=== PATIENT | male | born 1950 | race Caucasian/White ===

== ENCOUNTER 2018-07-13 05:30 | Day surgery (SDC) | payer MEDICARE ==
[~2018-07-13] VITALS: Ht 180.3 cm; Wt 83.5 kg
[~2018-07-13 05:30] MED LIST: ATOR40TA69 PO; ESOM40CA PO; MULT-40 PO
[2018-07-13] MEDS ORDERED: SODIUM CHLORIDE 0.9% 1000ML 1,000 ML IV ONE ×2 (05:51)
[2018-07-13 06:06] VITALS: BP 149/88
[2018-07-13] MEDS ORDERED: ESOM40CA54 PO (06:26)
[2018-07-13] MEDS ORDERED: DULO20 PO (06:26)
[2018-07-13] MEDS ORDERED: LOSA100T58 PO (06:26)
[2018-07-13] MEDS ORDERED: ASPI-555 PO (06:26)
[2018-07-13] MEDS ORDERED: POTA99TA4 PO (06:26)
[2018-07-13] MEDS ORDERED: RANO500T3 PO (06:26)
[2018-07-13] MEDS ORDERED: METO-408 PO (06:26)
[2018-07-13 07:25] VITALS: BP 117/83
[2018-07-13 07:30] VITALS: BP 138/78
[2018-07-13 07:35] VITALS: BP 140/84
[2018-07-13 07:40] VITALS: BP 150/93
== END 2018-07-13 07:54 | disposition home or self-care (01) ==
LOC: DAH 05:30 → ENDO 05:30
PROVIDERS: ATTEND Internal Medicine
DX: Z12.11 Encounter for screening for malignant neoplasm of colon (principal); D12.2 Benign neoplasm of ascending colon; D12.3 Benign neoplasm of transverse colon; D12.4 Benign neoplasm of descending colon; K57.30 Diverticulosis of large intestine without perforation or abscess without bleeding; K64.0 First degree hemorrhoids; I25.2 Old myocardial infarction; I10 Essential (primary) hypertension; B19.20 Unspecified viral hepatitis C without hepatic coma; R12 Heartburn; F32.9 Major depressive disorder, single episode, unspecified; F41.9 Anxiety disorder, unspecified; Z86.010 Personal history of colon polyps; E78.5 Hyperlipidemia, unspecified; Z88.5 Allergy status to narcotic agent; Z88.8 Allergy status to other drugs, medicaments and biological substances; Z79.82 Long term (current) use of aspirin; Z79.899 Other long term (current) drug therapy
CPT/HCPCS: 45380; 45385; 88305; A4606; J7030 ×2

== ENCOUNTER 2018-10-07 09:55 | Inpatient (IN) | payer MEDICARE | END 2018-10-09 13:02 | disposition home or self-care (01) | LOC: EDH 09:55 → EDHIP 11:00 → 4AH 10-08 13:16 → 2BH 13:17 | PROC: 00C43ZZ Extirpation of Matter from Intracranial Subdural Space, Percutaneous Approach (ICD-10-PCS; principal; 2018-10-07 12:00) | DX: S06.5X9A Traumatic subdural hemorrhage with loss of consciousness of unspecified duration, initial encounter (principal); R41.82 Altered mental status, unspecified; W18.2XXA Fall in (into) shower or empty bathtub, initial encounter; Y93.E1 Activity, personal bathing and showering ==

== ENCOUNTER → 2024-08-01 | Outpatient (CLI) | payer OTHER ==
[~2024-08-01] MED LIST changes: +ASPI-556 PO; -ESOM40CA PO; +ESOM40CA66 PO; +LOSA100T59 PO; +METO-408 PO; +POTA99TA4 PO; +RANO500T3 PO
--- NOTE | 2024-08-02 01:07 | HMCSR ---
APPROVED REPORT EXAM: Two-dimensional and M-mode echocardiogram with Doppler and color Doppler. INDICATION ICD: Atherosclerotic heart disease of [place] coronary artery without angina pectoris I25.10 2D Dimensions RVDd3.8 cmLVEF(%)55.2 (>50%)LVED Vol(simp.)112.0 mL IVSd1.2 (0.7-1.1cm)FS(%)29 %LVES Vol(simp.)53.0 mL LVDd5.1 (3.8-5.6cm)LA (2D)3.6 (1.6-4.0cm)LVEF(%, simp.)53 % PWd1.2 (0.7-1.1cm)Ao Root(2D)3.4 (2.0-3.7cm)LA ESV INDEX (BP)35.70 mL/m2 LVDs3.7 (2.5-4.0cm)LVOT diam2.3 (1.8-2.4cm) IVC diam1.3 cm Deformation Strain Apical 4-16.5 % Apical 2-17.6 % Apical 3-18.4 % Global Strain-17.5 % M-Mode Dimensions EPSS0.7 cm LA (MM)4.3 (1.6-4.0cm) Ao Root(MM)2.7 (2.0-3.7cm) Aortic Valve AoV Vmax3.1 m/Trino Peak GR37.4 mmHgLVOT Vmax1.3 m/s AoV VTI0.7 mAo Mean GR23.9 mmHgLVOT VTI0.28 m ARRON (VMAX)1.78 cm2Al P1/2T441 msAVA (VTI) 1.7 cm2 Mitral Valve MV E Vmax71.5 cm/sDECEL Qudb781 ms MV A Uixd675.1 cm/sP 1/2 T56 ms E/A ratio0.7MVA (PHT)4.0 cm2 TDI E/E' Jysbpp96.8E/E' Sfxdjvy03.5 Medial E' Peak V4.02 cm/sLateral E' Peak V6.80 cm/s Pulmonary Valve PV Vmax0.7 m/sPV VTI0.13 mPV Mean GR0.9 mmHg PV Peak GR1.9 mmHg Left Ventricle The left ventricle is normal in size. No regional wall motion abnormalities noted. Mild concentric le ft ventricular hypertrophy. Left ventricle systolic function is low-normal, estimated LVEF 50-55%. St age I diastolic dysfunction. Right Ventricle The right ventricle is normal size. The right ventricular systolic function is normal. Atria The left atrium is mildly dilated, 36 mL/m. The right atrium size is normal. Aortic Valve Aortic valve is trileaflet. The leaflets are thickened and calcified. Moderate aortic regurgitation, pressure half-time 441 ms. Moderate aortic stenosis: Peak velocity 3.3 m/s, mean gradient 29 mmHg, AV A 1.9 cm. Mitral Valve The mitral valve is normal in structure. The leaflets are mildly thickened and calcified. Mild mitral regurgitation. There is no mitral valve stenosis. Tricuspid Valve The tricuspid valve is normal in structure and function. Trace tricuspid regurgitation. RVSP is kishan l. Pulmonic Valve Pulmonic valve is not well visualized. Great Vessels The aortic root is normal in size. The IVC is normal in size and collapses >50% with inspiration. Pericardium No pericardial effusion. Conclusion The left atrium is mildly dilated, 36 mL/m. Mild concentric left ventricular hypertrophy. No regional wall motion abnormalities noted. Left ventricle systolic function is low-normal, estimated LVEF 50-55%. Stage I diastolic dysfunction. Moderate aortic stenosis: Peak velocity 3.3 m/s, mean gradient 29 mmHg, ARRON 1.9 cm. Moderate aortic regurgitation, pressure half-time 441 ms. Mild mitral regurgitation. Trace tricuspid regurgitation. PASP is normal. No pericardial effusion.
== END | disposition home or self-care (01) ==
LOC: RAH 10:55
PROVIDERS: ATTEND Chiropractor
DX: I08.0 Rheumatic disorders of both mitral and aortic valves (principal); I25.10 Atherosclerotic heart disease of native coronary artery without angina pectoris
CPT/HCPCS: 93306